=== PATIENT | female | born 1965 | race Native Hawaiian/Other Pacific Islander ===

== ENCOUNTER 2017-04-09 17:09 | Emergency (ER) | payer OTHER ==
[~2017-04-09] VITALS: Ht 162.6 cm; Wt 45.4 kg
[2017-04-09 17:12] VITALS: TEMP 101.4
[2017-04-09 18:15] LABS: PLATELET COUNT 299 K/uL (152-353)
[2017-04-09 18:32] LABS: POTASSIUM 3.8 mmol/L (3.6-5.2); SODIUM 128 mmol/L (136-145)
[2017-04-09 19:33] VITALS: BP 132/82
== END 2017-04-09 19:33 | disposition home or self-care (01) ==
LOC: ED 17:09
DX: N39.0 Urinary tract infection, site not specified (principal); N20.1 Calculus of ureter
CPT/HCPCS: 36415; 80053; 81000; 85027; 87077; 87086; 87088; 87186; 96372; 99283; J0696

== ENCOUNTER 2019-02-23 12:11 | Emergency (ER) | payer OTHER ==
[~2019-02-23] VITALS: Ht 162.6 cm; Wt 49.4 kg
[2019-02-23 12:25] VITALS: TEMP 97.2
[2019-02-23 13:20] LABS: PLATELET COUNT 299 K/uL (152-353)
[2019-02-23 13:21] LABS: POTASSIUM 3.5 mmol/L (3.6-5.2)
[2019-02-23 14:10] VITALS: BP 118/74
== END 2019-02-23 14:10 | disposition home or self-care (01) ==
LOC: ED 12:11
PROVIDERS: Family Medicine
DX: R50.9 Fever, unspecified (principal); R11.2 Nausea with vomiting, unspecified; R10.84 Generalized abdominal pain
CPT/HCPCS: 36415; 80053; 81000; 82150; 83690; 85027; 96365; 99284

== ENCOUNTER 2019-03-29 06:58 | Emergency (ER) | payer OTHER ==
[~2019-03-29] VITALS: Ht 162.6 cm; Wt 47.6 kg
[2019-03-29 07:06] VITALS: BP 119/79; TEMP 97.7
== END 2019-03-29 08:05 | disposition home or self-care (01) ==
LOC: ED 06:58
DX: K04.7 Periapical abscess without sinus (principal); K02.9 Dental caries, unspecified; R11.0 Nausea
CPT/HCPCS: 96372; 99283; J0696; J2405

== ENCOUNTER 2022-05-21 20:00 | Emergency (ER) | payer BC ==
[~2022-05-21] VITALS: Ht 162.6 cm; Wt 45.4 kg
[2022-05-21 21:32] VITALS: BP 144/90; TEMP 97.6
== END 2022-05-21 21:32 | disposition home or self-care (01) ==
LOC: ED 20:00
DX: N39.0 Urinary tract infection, site not specified (principal); L29.9 Pruritus, unspecified
CPT/HCPCS: 80307; 81002; 81015; 87077; 87086; 87088; 87186; 96372; 99283; J0696; Q0177

== ENCOUNTER 2022-06-07 19:22 | Emergency (ER) | payer BC ==
[~2022-06-07] VITALS: Ht 162.6 cm; Wt 45.4 kg
[2022-06-07 19:42] VITALS: BP 150/100; TEMP 98.6
== END 2022-06-07 20:45 | disposition home or self-care (01) ==
LOC: ED 19:22
DX: B86 Scabies (principal)
CPT/HCPCS: 99282

== ENCOUNTER 2022-07-23 15:44 | Emergency (ER) | payer BC ==
[~2022-07-23] VITALS: Ht 162.6 cm; Wt 45.4 kg
[2022-07-23 17:49] LABS: PLATELET COUNT 221 K/uL (152-353)
[2022-07-23 17:51] LABS: POTASSIUM 3.6 mmol/L (3.6-5.2)
[2022-07-23 20:30] VITALS: BP 131/80; TEMP 97.9
== END 2022-07-23 20:30 | disposition home or self-care (01) ==
LOC: ED 15:44
PROVIDERS: Family Medicine
DX: M54.59 Other low back pain (principal); J43.9 Emphysema, unspecified; F17.210 Nicotine dependence, cigarettes, uncomplicated
CPT/HCPCS: 36415; 80053; 81002; 82150; 83690; 85027; 94664; 96372; 99283; J1885

== ENCOUNTER 2022-10-31 16:17 | Emergency (ER) | payer OTHER ==
[~2022-10-31] VITALS: Ht 162.6 cm; Wt 49.9 kg
[2022-10-31 18:18] VITALS: BP 142/87; TEMP 97.7
== END 2022-10-31 18:51 | disposition home or self-care (01) ==
LOC: ED 16:17
DX: M19.09 Primary osteoarthritis, other specified site (principal); M47.816 Spondylosis without myelopathy or radiculopathy, lumbar region; M54.89 Other dorsalgia
CPT/HCPCS: 96372; 99284; J1885

== ENCOUNTER 2023-01-16 09:41 | Outpatient (CLI) | payer OTHER | END 2023-01-16 20:44 | disposition home or self-care (01) | LOC: MRI 09:41 | PROVIDERS: ATTEND Orthopaedic Surgery | DX: M54.2 Cervicalgia (principal); M54.12 Radiculopathy, cervical region; M48.02 Spinal stenosis, cervical region; M05.50 Rheumatoid polyneuropathy with rheumatoid arthritis of unspecified site ==

== ENCOUNTER 2023-03-01 13:15 | Outpatient (CLI) | payer OTHER | END 2023-03-01 19:37 | disposition home or self-care (01) | LOC: MRI 13:15 | PROVIDERS: ATTEND Nurse Practitioner | DX: M50.321 Other cervical disc degeneration at C4-C5 level (principal); M50.322 Other cervical disc degeneration at C5-C6 level; M50.323 Other cervical disc degeneration at C6-C7 level; M48.02 Spinal stenosis, cervical region; M54.12 Radiculopathy, cervical region; M40.292 Other kyphosis, cervical region; R26.81 Unsteadiness on feet; F17.210 Nicotine dependence, cigarettes, uncomplicated; M51.36 Other intervertebral disc degeneration, lumbar region; M54.16 Radiculopathy, lumbar region ==

== ENCOUNTER 2023-04-20 10:54 | Outpatient (CLI) | payer OTHER | END 2023-04-20 19:20 | disposition home or self-care (01) | LOC: RAD 10:54 | PROVIDERS: ATTEND Nurse Practitioner Family | DX: M25.522 Pain in left elbow (principal) ==

== ENCOUNTER 2023-04-26 07:48 | Outpatient (CLI) | payer OTHER | END 2023-04-26 22:03 | disposition home or self-care (01) | LOC: US 07:48 | PROVIDERS: ATTEND Family Medicine | DX: Z13.6 Encounter for screening for cardiovascular disorders (principal); Z87.891 Personal history of nicotine dependence ==

== ENCOUNTER 2023-05-03 08:08 | Day surgery (SDC) | payer OTHER ==
[~2023-05-03] VITALS: Ht 162.6 cm; Wt 48.5 kg
== END 2023-05-03 10:00 | disposition home or self-care (01) ==
LOC: OR 08:08
PROVIDERS: ATTEND Family Medicine
PROC: 0XP70YZ Removal of Other Device from Left Upper Extremity, Open Approach (ICD-10-PCS; principal; 2023-05-03)
DX: Z30.46 Encounter for surveillance of implantable subdermal contraceptive (principal)
CPT/HCPCS: J2704; J7120

== ENCOUNTER 2023-05-06 10:19 | Emergency (ER) | payer OTHER ==
[~2023-05-06] VITALS: Ht 162.6 cm; Wt 46.3 kg
[2023-05-06 11:21] LABS: PLATELET COUNT 253 K/uL (152-353)
[2023-05-06 11:34] LABS: SODIUM 137 mmol/L (136-145)
[2023-05-06 12:01] VITALS: BP 143/97; TEMP 99.9
[2023-05-06] MEDS ORDERED: BUPR1SUBFM SL (17:37)
[2023-05-06] MEDS ORDERED: DICL75TA4 PO (17:41)
[2023-05-06] MEDS ORDERED: ALBUTEROL108 MCG/AC INH (17:42)
[2023-05-06] MEDS ORDERED: PREG75CA PO (17:42)
[2023-05-06] MEDS ORDERED: TRAMADOL HYDROC50 MG PO (18:05)
[2023-05-06] MEDS ORDERED: IBU800 MG PO (18:05)
[2023-05-06] MEDS ORDERED: MEDROL DOSEPAK4 MG PO (18:10)
[2023-05-06] MEDS ORDERED: Z-PAK PO (18:10)
[2023-05-06] MEDS ORDERED: DIPH25CA90 PO (18:11)
[2023-05-06] MEDS ORDERED: HYDROXYZINE HYD25 MG PO (18:12)
[2023-05-06] MEDS ORDERED: CYCLOBENZAPRINE5 MG PO (18:12)
== END 2023-05-06 12:35 | disposition home or self-care (01) ==
LOC: ED 10:19
PROVIDERS: Family Medicine
DX: J40 Bronchitis, not specified as acute or chronic (principal); J06.9 Acute upper respiratory infection, unspecified; F17.210 Nicotine dependence, cigarettes, uncomplicated
CPT/HCPCS: 80053; 83880; 84484; 85027; 93005; 94664; 96374; 99284; J2930

== ENCOUNTER 2023-05-06 14:43 | Observation (INO) | payer OTHER ==
[~2023-05-06] VITALS: Ht 162.6 cm; Wt 47.2 kg
[2023-05-06 14:46] VITALS: BP 142/93; TEMP 97.3
[2023-05-06 17:37] VITALS: BP 127/82; TEMP 98.3; Ht 162.6 cm; Wt 47.2 kg
[2023-05-06] MEDS ORDERED: BUPR1SUBFM SL (17:37)
[2023-05-06] MEDS ORDERED: DICL75TA4 PO (17:41)
[2023-05-06] MEDS ORDERED: ALBUTEROL108 MCG/AC INH (17:42)
[2023-05-06] MEDS ORDERED: PREG75CA PO (17:42)
[2023-05-06] MEDS ORDERED: IBU800 MG PO (18:05)
[2023-05-06] MEDS ORDERED: TRAMADOL HYDROC50 MG PO (18:05)
[2023-05-06] MEDS ORDERED: Z-PAK PO (18:10)
[2023-05-06] MEDS ORDERED: MEDROL DOSEPAK4 MG PO (18:10)
[2023-05-06] MEDS ORDERED: DIPH25CA90 PO (18:11)
[2023-05-06] MEDS ORDERED: CYCLOBENZAPRINE5 MG PO (18:12)
[2023-05-06] MEDS ORDERED: HYDROXYZINE HYD25 MG PO (18:12)
[2023-05-06 20:00] VITALS: BP 90/60; TEMP 98.5
[2023-05-06 23:31] VITALS: BP 98/68; TEMP 98.6
[2023-05-07 03:42] VITALS: BP 108/67; TEMP 97.7
[2023-05-07 05:27] LABS: PLATELET COUNT 252 K/uL (152-353)
[2023-05-07 05:39] LABS: POTASSIUM 3.7 mmol/L (3.6-5.2)
[2023-05-07 08:00] VITALS: BP 113/73; TEMP 98
[2023-05-07 12:00] VITALS: BP 105/67; TEMP 97.9
[2023-05-07 16:00] VITALS: BP 125/82; TEMP 98.4
[2023-05-07 17:12] LABS: PLATELET COUNT 251 K/uL (152-353)
[2023-05-07 19:48] VITALS: BP 127/71; TEMP 98.5
[2023-05-07 23:41] VITALS: BP 146/90; TEMP 97.9
[2023-05-08 03:54] VITALS: BP 124/92; TEMP 98.3
[2023-05-08 07:52] VITALS: BP 156/96; TEMP 98.1
[2023-05-08] MEDS ORDERED: Voltaren GEL 1% 100G TOP (10:30)
== END 2023-05-08 13:12 | disposition home or self-care (01) ==
LOC: ED 14:43 → MED/SURG 15:02
PROVIDERS: ADMIT Internal Medicine; ATTEND Internal Medicine
DX: J96.11 Chronic respiratory failure with hypoxia (principal); J44.1 Chronic obstructive pulmonary disease with (acute) exacerbation; M06.8A Other specified rheumatoid arthritis, other specified site; R53.1 Weakness; G89.29 Other chronic pain; M20.029 Boutonniere deformity of unspecified finger(s); F17.210 Nicotine dependence, cigarettes, uncomplicated
CPT/HCPCS: 36415; 80053; 80307; 83735; 84100; 85027; 94664; 94760; 96374; 96375; 96376; 99221; 99283; G0378; J2060; J2270; J2930

== ENCOUNTER 2023-05-24 11:57 | Outpatient (CLI) | payer OTHER ==
[~2023-05-24 11:57] MED LIST: ALBUTEROL108 MCG/AC INH; BUPR1SUBFM SL; CYCLOBENZAPRINE5 MG PO; DICL75TA4 PO; DIPH25CA90 PO; HYDROXYZINE HYD25 MG PO; IBU800 MG PO; MEDROL DOSEPAK4 MG PO; PREG75CA PO; TRAMADOL HYDROC50 MG PO; Voltaren GEL 1% 100G TOP; Z-PAK PO
== END 2023-05-24 20:29 | disposition home or self-care (01) ==
LOC: MAMMO 11:57
PROVIDERS: ATTEND Family Medicine
DX: Z12.31 Encounter for screening mammogram for malignant neoplasm of breast (principal); R29.6 Repeated falls